=== PATIENT | male | born 1965 | race Caucasian/White ===

== ENCOUNTER 2018-10-20 18:29 | Inpatient (IN) ==
[2018-10-20] MEDS ORDERED: ONDANSETRON INJ 2 MG/ML 2 ML VIAL IV STA (18:45)
[2018-10-20] MEDS ORDERED: MoRPHine SULFATE 4 MG/ML 1 ML CARP\\VIAL IV PRN (18:45)
--- NOTE | 2018-10-20 18:50 | Emergency Department Note ---
Entered by Collin Nina acting as a scribe for History of Present Illness General Chief complaint: Chest Pain Stated complaint: CHEST PAIN, HEADACHE Source: patient History of Present Illness Onset (ago): hour(s) (9.5) Location: chest Pain Consistency: + constant Quality: + other (heaviness) Associated symptoms: + denies other symptoms (abdominal pain), + headaches and + other (neck heaviness); no shortness of breath Treatments prior to arrival: other (nitro) The patient is a 53 year old male who presents to the Emergency Room with complaints of constant upper chest heaviness beginning 9.5 hours ago. The patient states he was in the office this morning when his symptoms started. He reports his heaviness has spread to his neck, and he denies it spreading to his abdomen. The patient notes he was given nitro, and it worsened his headache. He denies feeling a sharp, achy, or cramping pain. 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 He reports he uses tobacco products. He denies shortness of breath, taking medication daily, alcohol use, abdominal pain, a family history of heart attacks at an early age, and a family history of an aneurysm at a young age. Home Medications Home Medications Medication Instructions Recorded Confirmed Type cannabidiol (CBD) extract 1 dose PO DIRECTED 10/20/18 10/20/18 History Allergies Allergy/AdvReac Type Severity Reaction Status Date / Time No Known Allergies Allergy Verified 10/20/18 21:53 [id number] Allergy Unknown Unknown Uncoded 10/20/18 21:53 Past Med/Surg History Medical History No pertinent past medical history Surgical History No pertinent past surgical history Family History Other No pertinent family history Social History Preferred Language: Latvian Communication Ability: Effective Beliefs That Will Affect Care: None Current Living Situation: Spouse Feels Safe at Home: Yes Safety Concerns: Feels Safe At This Time Smoking Status: Never smoker Hx Alcohol Use: Yes Hx Substance Use: No Review of Systems See HPI for pertinent positives & negatives. and A total of 10 systems reviewed and were otherwise negative Physical Exam Vital Signs Vital Signs - 24 hr 10/20/18 18:38 10/20/18 19:00 10/20/18 20:13 Temperature 36.7 C Temperature Source Oral Sepsis Recent Fever Within 48 Hours No Sepsis Action Taken by Nursing No Action Required Pulse Rate Pulse Rate [Right Finger] 66 Pulse Rhythm Regular Pulse Rhythm [Right Finger] Regular Pulse Strength [Right Finger] Normal Respiratory Rate 18 16 Respiratory Effort / Characteristics Non-Labored Respiratory Depth Normal Normal Respiratory Pattern Blood Pressure Blood Pressure [Left Arm] Blood Pressure [Right Arm] 152/115 H Blood Pressure Mean [Left Arm] Blood Pressure Mean [Right Arm] 127 Blood Pressure Position [Left Arm] Blood Pressure Position [Right Arm] Lying Pulse Oximetry 95 95 99 Pulse Oximetry [Right Index Finger] Oxygen Delivery Method Room Air Room Air Room Air Oxygen Delivery Method [Right Index Finger] 10/20/18 22:00 10/20/18 23:30 10/21/18 00:11 Temperature Temperature Source Sepsis Recent Fever Within 48 Hours Sepsis Action Taken by Nursing Pulse Rate 69 Pulse Rate [Right Finger] 86 69 Pulse Rhythm Pulse Rhythm [Right Finger] Regular Regular Pulse Strength [Right Finger] Normal Normal Respiratory Rate 16 15 16 Respiratory Effort / Characteristics Non-Labored Non-Labored Respiratory Depth Normal Normal Respiratory Pattern Regular Regular Blood Pressure 203/138 H Blood Pressure [Left Arm] Blood Pressure [Right Arm] 183/127 H 205/140 H Blood Pressure Mean [Left Arm] Blood Pressure Mean [Right Arm] 145 161 Blood Pressure Position [Left Arm] Blood Pressure Position [Right Arm] Lying Lying Pulse Oximetry 98 95 99 Pulse Oximetry [Right Index Finger] Oxygen Delivery Method Room Air Room Air Room Air Oxygen Delivery Method [Right Index Finger] 10/21/18 00:29 10/21/18 00:30 10/21/18 00:35 Temperature 36.7 C Temperature Source Oral Sepsis Recent Fever Within 48 Hours Sepsis Action Taken by Nursing Pulse Rate Pulse Rate [Right Finger] 83 Pulse Rhythm Pulse Rhythm [Right Finger] Pulse Strength [Right Finger] Respiratory Rate Respiratory Effort / Characteristics Non-Labored Spontaneous Non-Labored Spontaneous Respiratory Depth Normal Normal Respiratory Pattern Regular Regular Blood Pressure Blood Pressure [Left Arm] Blood Pressure [Right Arm] 224/149 H Blood Pressure Mean [Left Arm] Blood Pressure Mean [Right Arm] 174 Blood Pressure Position [Left Arm] Blood Pressure Position [Right Arm] Sitting Pulse Oximetry 97 Pulse Oximetry [Right Index Finger] 96 Oxygen Delivery Method Room Air Room Air Oxygen Delivery Method [Right Index Finger] Room Air 10/21/18 01:04 10/21/18 02:15 10/21/18 03:35 Temperature 36.7 C Temperature Source Oral Sepsis Recent Fever Within 48 Hours Sepsis Action Taken by Nursing Pulse Rate 75 Pulse Rate [Right Finger] 75 65 Pulse Rhythm Pulse Rhythm [Right Finger] Pulse Strength [Right Finger] Respiratory Rate 18 18 Respiratory Effort / Characteristics Non-Labored Spontaneous Respiratory Depth Respiratory Pattern Blood Pressure Blood Pressure [Left Arm] Blood Pressure [Right Arm] 165/88 H 155/84 H Blood Pressure Mean [Left Arm] Blood Pressure Mean [Right Arm] 113 107 Blood Pressure Position [Left Arm] Blood Pressure Position [Right Arm] Lying Pulse Oximetry 96 98 Pulse Oximetry [Right Index Finger] Oxygen Delivery Method Room Air Room Air Oxygen Delivery Method [Right Index Finger] 10/21/18 07:55 10/21/18 12:13 10/21/18 13:31 Temperature 36.6 C 36.7 C Temperature Source Oral Oral Sepsis Recent Fever Within 48 Hours Sepsis Action Taken by Nursing Pulse Rate 77 Pulse Rate [Right Finger] 72 64 Pulse Rhythm Pulse Rhythm [Right Finger] Regular Pulse Strength [Right Finger] Normal Respiratory Rate 18 16 Respiratory Effort / Characteristics Non-Labored Spontaneous Respiratory Depth Normal Respiratory Pattern Blood Pressure Blood Pressure [Left Arm] 193/125 H Blood Pressure [Right Arm] 174/110 H 172/122 H Blood Pressure Mean [Left Arm] 147 Blood Pressure Mean [Right Arm] 131 138 Blood Pressure Position [Left Arm] Sitting Blood Pressure Position [Right Arm] Lying Sitting Pulse Oximetry 97 96 Pulse Oximetry [Right Index Finger] Oxygen Delivery Method Room Air Room Air Oxygen Delivery Method [Right Index Finger] 10/21/18 15:16 Temperature 36.7 C Temperature Source Oral Sepsis Recent Fever Within 48 Hours Sepsis Action Taken by Nursing Pulse Rate Pulse Rate [Right Finger] 64 Pulse Rhythm Pulse Rhythm [Right Finger] Regular Pulse Strength [Right Finger] Normal Respiratory Rate 18 Respiratory Effort / Characteristics Non-Labored Respiratory Depth Normal Respiratory Pattern Blood Pressure Blood Pressure [Left Arm] Blood Pressure [Right Arm] 169/106 H Blood Pressure Mean [Left Arm] Blood Pressure Mean [Right Arm] 127 Blood Pressure Position [Left Arm] Blood Pressure Position [Right Arm] Lying Pulse Oximetry 97 Pulse Oximetry [Right Index Finger] Oxygen Delivery Method Room Air Oxygen Delivery Method [Right Index Finger] GENERAL: Patient is awake and alert. He is somewhat anxious appearing and appears to be uncomfortable. EYES: The conjunctivae are clear. The pupils are round and reactive. EARS, NOSE, MOUTH AND THROAT: The nose is without any evidence of any deformity. Mucous membranes are moist tongue is midline NECK: The neck is nontender and supple. RESPIRATORY: Normal respiratory effort is noted there is no evidence of wheezing rhonchi or rales CARDIOVASCULAR: Regular rate and rhythm noted there no murmurs rubs or gallops normal S1 normal S2 GASTROINTESTINAL: The abdomen is soft. Bowel sounds are present in all quadrants. Abdomen is nontender MUSCULOSKELETAL/EXTREMITIES: There is no evidence of gross deformity full range of motion is noted in the hips and shoulders SKIN: There is no obvious evidence of any rash. There are no petechiae, pallor or cyanosis noted. NEUROLOGIC: Patient is awake alert and oriented x3 strength is symmetric patellar reflexes are 2+ bilaterally Course 1841: Past medical records reviewed. The patient was evaluated in room C01B, and a complete history and physical examination were performed. 2124: I reevaluated the patient and discussed the findings with him. He verbalized agreement to a hospitalist evaluation and the treatment plan. The patient will be evaluated for further management and care. I paged the hospitalist. 1: I reviewed the patient's case with Dr. Vaughn, [facility] Hospitalist. He will evaluate the patient for further management. Administered Medications Amlodipine Besylate (Norvasc) 5 mg PO QAM [facility] Stop: 11/20/18 15:44 Last Admin: 10/21/18 16:14 Dose: 5 mg Documented by: [id number] Aspirin (Ecotrin Ectab) 81 mg PO QAM [facility] Stop: 11/20/18 08:59 Last Admin: 10/21/18 08:21 Dose: 81 mg Documented by: [id number] Enoxaparin Sodium (Lovenox) 40 mg SQ Q24H [facility] Stop: 11/20/18 07:59 Last Admin: 10/21/18 08:22 Dose: 40 mg Documented by: [id number] Hydralazine HCl (Hydralazine Hcl) 10 mg IV Q3H PRN PRN Reason: Systolic BP >180 Stop: 11/20/18 01:14 Last Admin: 10/21/18 01:26 Dose: 10 mg Documented by: [id number] Lisinopril (Zestril) 10 mg PO QAM ANANT Stop: 11/20/18 15:29 Last Admin: 10/21/18 16:14 Dose: 10 mg Documented by: [id number] Discontinued Medications Potassium Chloride/Dextrose/Sod Cl (D5nss + 20meq Kcl) 20 meq in 1,000 mls @ 80 mls/hr IV .[id number] ANANT Stop: 10/21/18 13:04 Last Infusion: 10/21/18 13:17 Dose: 0 mls/hr Documented by: [id number] Admin: 10/21/18 01:35 Dose: 80 mls/hr Documented by: [id number] Ioversol (Optiray 320 125ml) 119 ml IV ONCE PRN PRN Reason: Interaction Checking Stop: 10/24/18 20:30 Last Admin: 10/20/18 20:31 Dose: 119 ml Documented by: [id number] Labetalol HCl (Normodyne) 10 mg IV NOW STA Stop: 10/21/18 13:57 Last Admin: 10/21/18 14:40 Dose: 10 mg Documented by: [id number] Cosigned by: [id number] Lisinopril (Zestril) 5 mg PO NOW ONE Stop: 10/20/18 22:38 Last Admin: 10/20/18 22:51 Dose: 5 mg Documented by: [id number] Ondansetron HCl (Zofran) 4 mg IV NOW STA Stop: 10/20/18 18:46 Last Admin: 10/20/18 18:55 Dose: Not Given Documented by: [id number] Regadenoson (Lexiscan) Confirm Administered Dose 0.4 mg IV .STK-MED ONE Stop: 10/21/18 10:01 Last Admin: 10/21/18 13:16 Dose: Not Given Documented by: [id number] Medical Decision Making Differential Diagnosis Differential: Cardiac Ischemia (STEMI, NSTEMI, Unstable Angina, etc), Aortic Dissection, Arrhythmia, Pulmonary Embolism, Pneumonia, Pneumothorax, MSK, Infectious, Pericarditis/Myocarditis, Esophageal Rupture, Gastrointestinal, amongst other pathologies entertained. Medical Records Attestation: I reviewed the patient's medical records. Home Medications Current Medication List: was personally reviewed by me Laboratory Data Attestation: I reviewed the patient's lab results. Result diagrams: 10/20/18 19:13 10/20/18 19:13 Lab Results 10/20/18 10/20/18 10/20/18 Range/Units 19:13 19:13 19:13 WBC 8.91 (4.8-10.8) K/uL RBC 4.65 L (4.7-6.1) M/uL Hgb 15.2 (14.0-18.0) g/dL Hct 43.8 (42-52) % MCV 94.2 (80-100) fL MCH 32.7 (25-34) pg MCHC 34.7 (32-36) g/dL RDW Std Deviation 41.4 (36.4-46.3) fL RDW Coeff of Tyrel 12.2 (11.5-14.5) % Plt Count 292 (130-400) K/uL MPV 9.2 (7.4-10.4) fL Immature Gran % (Auto) 0.2 % Neut % (Auto) 70.7 % Lymph % (Auto) 16.0 % Thomas % (Auto) 10.5 % Eos % (Auto) 2.0 % Baso % (Auto) 0.6 % Immature Gran # (Auto) 0.02 (0.00-0.02) K/uL Neut # (Auto) 6.29 (1.4-6.5) K/uL Lymph # (Auto) 1.43 (1.2-3.4) K/uL Thomas # (Auto) 0.94 H (0.11-0.59) K/uL Eos # (Auto) 0.18 (0-0.5) K/uL Baso # (Auto) 0.05 (0-0.2) K/uL PT Cancelled INR Cancelled APTT Cancelled PTT Ratio Cancelled Sodium 138 (136-145) mmol/L Potassium 4.0 (3.5-5.1) mmol/L Chloride 104 (98-107) mmol/L Carbon Dioxide 28 (21-32) mmol/L Anion Gap 6.0 (3-11) BUN 9 (7-18) mg/dl Creatinine 0.43 L (0.6-1.4) mg/dl Est Cr Clr Drug Dosing 232.0 ml/min Est GFR ( Amer) > 150.0 Est GFR (Non-Af Amer) 129.8 BUN/Creatinine Ratio 21.2 H (10-20) Glucose 106 H (70-99) mg/dl Calcium 8.8 (8.5-10.1) mg/dl Total Bilirubin 0.5 (0.2-1) mg/dl AST 19 (15-37) U/L ALT 36 (12-78) U/L Alkaline Phosphatase 56 (45-117) U/L Troponin I < 0.015 (0-0.045) ng/ml Total Protein 7.0 (6.4-8.2) gm/dl Albumin 3.6 (3.4-5.0) gm/dl Globulin 3.4 (2.5-4.0) gm/dl Albumin/Globulin Ratio 1.1 (0.9-2) Triglycerides (0-150) mg/dl Cholesterol (0-200) mg/dl LDL Cholesterol, Calc mg/dl VLDL Cholesterol, Calc mg/dl HDL Cholesterol mg/dl Cholesterol/HDL Ratio Lipase 88 (73-393) U/L Hepatitis C Ab Screen (Neg) 10/20/18 10/20/18 10/21/18 Range/Units 19:14 23:49 00:40 WBC (4.8-10.8) K/uL RBC (4.7-6.1) M/uL Hgb (14.0-18.0) g/dL Hct (42-52) % MCV (80-100) fL MCH (25-34) pg MCHC (32-36) g/dL RDW Std Deviation (36.4-46.3) fL RDW Coeff of Tyrel (11.5-14.5) % Plt Count (130-400) K/uL MPV (7.4-10.4) fL Immature Gran % (Auto) % Neut % (Auto) % Lymph % (Auto) % Thomas % (Auto) % Eos % (Auto) % Baso % (Auto) % Immature Gran # (Auto) (0.00-0.02) K/uL Neut # (Auto) (1.4-6.5) K/uL Lymph # (Auto) (1.2-3.4) K/uL Thomas # (Auto) (0.11-0.59) K/uL Eos # (Auto) (0-0.5) K/uL Baso # (Auto) (0-0.2) K/uL PT 10.8 INR 1.1 APTT PTT Ratio Sodium (136-145) mmol/L Potassium (3.5-5.1) mmol/L Chloride (98-107) mmol/L Carbon Dioxide (21-32) mmol/L Anion Gap (3-11) BUN (7-18) mg/dl Creatinine (0.6-1.4) mg/dl Est Cr Clr Drug Dosing ml/min Est GFR ( Amer) Est GFR (Non-Af Amer) BUN/Creatinine Ratio (10-20) Glucose (70-99) mg/dl Calcium (8.5-10.1) mg/dl Total Bilirubin (0.2-1) mg/dl AST (15-37) U/L ALT (12-78) U/L Alkaline Phosphatase (45-117) U/L Troponin I < 0.015 (0-0.045) ng/ml Total Protein (6.4-8.2) gm/dl Albumin (3.4-5.0) gm/dl Globulin (2.5-4.0) gm/dl Albumin/Globulin Ratio (0.9-2) Triglycerides (0-150) mg/dl Cholesterol (0-200) mg/dl LDL Cholesterol, Calc mg/dl VLDL Cholesterol, Calc mg/dl HDL Cholesterol mg/dl Cholesterol/HDL Ratio Lipase (73-393) U/L Hepatitis C Ab Screen Neg (Neg) 10/21/18 10/21/18 Range/Units 07:16 08:58 WBC (4.8-10.8) K/uL RBC (4.7-6.1) M/uL Hgb (14.0-18.0) g/dL Hct (42-52) % MCV (80-100) fL MCH (25-34) pg MCHC (32-36) g/dL RDW Std Deviation (36.4-46.3) fL RDW Coeff of Tyrel (11.5-14.5) % Plt Count (130-400) K/uL MPV (7.4-10.4) fL Immature Gran % (Auto) % Neut % (Auto) % Lymph % (Auto) % Thomas % (Auto) % Eos % (Auto) % Baso % (Auto) % Immature Gran # (Auto) (0.00-0.02) K/uL Neut # (Auto) (1.4-6.5) K/uL Lymph # (Auto) (1.2-3.4) K/uL Thomas # (Auto) (0.11-0.59) K/uL Eos # (Auto) (0-0.5) K/uL Baso # (Auto) (0-0.2) K/uL PT INR APTT PTT Ratio Sodium (136-145) mmol/L Potassium (3.5-5.1) mmol/L Chloride (98-107) mmol/L Carbon Dioxide (21-32) mmol/L Anion Gap (3-11) BUN (7-18) mg/dl Creatinine (0.6-1.4) mg/dl Est Cr Clr Drug Dosing ml/min Est GFR ( Amer) Est GFR (Non-Af Amer) BUN/Creatinine Ratio (10-20) Glucose (70-99) mg/dl Calcium (8.5-10.1) mg/dl Total Bilirubin (0.2-1) mg/dl AST (15-37) U/L ALT (12-78) U/L Alkaline Phosphatase (45-117) U/L Troponin I < 0.015 (0-0.045) ng/ml Total Protein (6.4-8.2) gm/dl Albumin (3.4-5.0) gm/dl Globulin (2.5-4.0) gm/dl Albumin/Globulin Ratio (0.9-2) Triglycerides 115 (0-150) mg/dl Cholesterol 167 (0-200) mg/dl LDL Cholesterol, Calc 84 mg/dl VLDL Cholesterol, Calc 23 mg/dl HDL Cholesterol 60 mg/dl Cholesterol/HDL Ratio 3 Lipase (73-393) U/L Hepatitis C Ab Screen (Neg) Imaging Data Radiologist's Impression: Radiology results as stated below per my review and the radiologist's interpretation: XR chest 1V portable CLINICAL HISTORY: Atypical chest pain COMPARISON STUDY: No previous studies for comparison. FINDINGS: The heart is normal in size. There is elevation/eventration left hemidiaphragm. There is no failure. There is no focal pulmonary consolidation. There are minor left lower lobe compressive atelectatic changes. There are no pleural effusions.[ IMPRESSION: 1. Elevation/eventration of the left hemidiaphragm 2. No evidence of focal pulmonary consolidation Electronically signed by: Duong Lauren M.D. 10/20/2018 7:[address] ANGIOGRAPHY OF THE CHEST WITHOUT A WITH CONTRAST CLINICAL HISTORY: Atypical chest pain. Possible aortic dissection. COMPARISON STUDY: Chest x-ray dated October 20, 2018 TECHNIQUE: Noncontrast images were obtained through the chest. Following the IV administration of 119 mL of Optiray-320, CT angiography of the thorax was performed from the thoracic inlet to the lung bases. MIP imaging was performed. Images are reviewed in the axial, sagittal, and coronal planes. IV contrast was administered without complication. A dose lowering technique was utilized adhering to the principles of ALARA. CT DOSE: 1009.87 mGy.cm FINDINGS: Noncontrast images reveal no evidence of acute thoracic aortic hematoma. Thyroid: Imaged portions of the thyroid gland are normal in appearance. Thoracic aorta: The thoracic aorta is normal in course and caliber, noting s tandard 3-vessel arch anatomy. No aneurysm or dissection is seen. Pulmonary vasculature: The pulmonary trunk is normal in caliber. There are no central filling defects identified to suggest pulmonary embolus. Note that this examination was not protocoled for the evaluation of pulmonary emboli. HEART: The heart is normal in size and configuration, without pericardial effusion. Lungs and pleural spaces: There is moderate respiratory motion artifact. There is no focal pulmonary consolidation. Mediastinum: There is no mediastinal lymphadenopathy. Fay: There is no evidence of pathologic hilar adenopathy Axilla: There is no evidence of pathologic axillary lymphadenopathy Upper abdomen: There is elevation/eventration left hemidiaphragm. There are low lung volumes. There is an 18 mm Central hepatic hypodensity, likely representing a cyst. Skeletal structures: There are no lytic or blastic osseous lesions. IMPRESSION: 1. Low lung volumes with elevation/eventration left hemidiaphragm 2. No evidence of thoracic aortic aneurysm or dissection 3. No evidence of acute pulmonary consolidation Electronically signed by: Duong Lauren M.D. 10/20/2018 8:53 PM ECG Data Attestation: I personally reviewed and interpreted this ECG as follows: Indication: chest pain Rate (beats per minute): 66 Rhythm: normal sinus Findings: + other (LVH by voltage criteria) and + T-wave inversion (lateral); no PAC and no PVC Comparison ECG Date: from (01/10/2001) Additional Comments: changes are new Blood Pressure Blood Pressure Findings: Elevated blood pressure Blood Pressure Disposition: further management by hospitalist MDM Narrative The patient is a 53-year-old male who presented to the emergency department for an evaluation of chest discomfort. The patient had an abnormal EKG which showed some T wave abnormalities. These changes appeared new compared to his previous. He was very anxious and had elevation in his blood pressure. The patient's troponin was negative. I was concerned this could represent a thoracic aortic aneurysm or possibly dissection. For this reason further radiographic studies were obtained. I discussed the patient's laboratory and radiographic studies with him. He was treated with aspirin as well as nitroglycerin. He was also treated with morphine. On subsequent reevaluation he was somewhat improved. Because the patient's abnormal findings I did discuss his case with the on-call [facility] hospitalist group. They have agreed to evaluate the patient in the emergency department for further management and disposition. Impression & Plan Chest pain, Abnormal EKG Discharge Plan Visit Data *Final* Discharge Date/Time: 10/21/18 00:11 Chief Complaint: Chest Pain Stated Complaint: CHEST PAIN, HEADACHE ED Provider: Alex Cosby Discharge Problem: Chest pain, Abnormal EKG Patient Disposition: Admitted As Inpatient Discharge Instructions Interventions: ED Discharge Assessment Last Done: 10/21/18 00:11 Discharge Problem: Chest pain Qualifiers: Chest pain type: unspecified Qualified Code(s): R07.9 - Chest pain, unspecified The scribe's documentation has been prepared under my direction and personally reviewed by me in its entirety. I confirm that the note above accurately reflects all work, treatment, procedures, and medical decision making performed by me.
--- NOTE | 2018-10-20 19:04 | XRay Report ---
XR chest 1V portable CLINICAL HISTORY: Atypical chest pain COMPARISON STUDY: No previous studies for comparison. FINDINGS: The heart is normal in size. There is elevation/eventration left hemidiaphragm. There is no failure. There is no focal pulmonary consolidation. There are minor left lower lobe compressive atel ectatic changes. There are no pleural effusions.[ IMPRESSION: 1. Elevation/eventration of the left hemidiaphragm 2. No evidence of focal pulmonary consolidation Electronically signed by: Duong Lauren M.D. 10/20/2018 7:03 PM
[2018-10-20 19:23] LABS: Basophils # (auto) 0.05 K/uL (0-0.2); Basophils % (auto) 0.6 %; Eosinophils # (auto) 0.18 K/uL (0-0.5); Hematocrit (blood only) 43.8 % (42-52); Hemoglobin 15.2 g/dL (14.0-18.0); Immature Granulocytes # (auto) 0.02 K/uL (0.00-0.02); Immature Granulocytes % (auto) 0.2 %; Lymphocytes # (auto) 1.43 K/uL (1.2-3.4); Mean Corpuscular Hgb Conc 34.7 g/dL (32-36); Mean Corpuscular Volume 94.2 fL (80-100); Mean Platelet Volume 9.2 fL (7.4-10.4); Monocytes # (auto) 0.94 K/uL (0.11-0.59); Monocytes % (auto) 10.5 %; Neutrophils # (auto) 6.29 K/uL (1.4-6.5); Neutrophils % (auto) 70.7 %; Platelet Count 292 K/uL (130-400); RDW Coefficient of Variation 12.2 % (11.5-14.5); RDW Standard Deviation 41.4 fL (36.4-46.3); Red Blood Count 4.65 M/uL (4.7-6.1); White Blood Count 8.91 K/uL (4.8-10.8)
[2018-10-20 19:41] LABS: Alanine Aminotransferase 36 U/L (12-78); Albumin Level 3.6 gm/dl (3.4-5.0); Aspartate Aminotransferase 19 U/L (15-37); BUN Creatinine Ratio 21.2 (10-20); Blood Urea Nitrogen 9 mg/dl (7-18); Calcium 8.8 mg/dl (8.5-10.1); Carbon Dioxide 28 mmol/L (21-32); Chloride 104 mmol/L (98-107); Est GFR (African American) > 150.0; Est GFR (Non-African American) 129.8; Glucose 106 mg/dl (70-99); Sodium 138 mmol/L (136-145)
[2018-10-20 19:46] LABS: Albumin Globulin Ratio 1.1 (0.9-2); Alkaline Phosphatase 56 U/L (45-117); Bilirubin,Total 0.5 mg/dl (0.2-1); Globulin 3.4 gm/dl (2.5-4.0); Troponin I < 0.015 ng/ml (0-0.045)
[2018-10-20] MEDS ORDERED: OPTIRAY 320 125ml IV PRN (20:31)
--- NOTE | 2018-10-20 20:54 | CT Scan Report ---
CT ANGIOGRAPHY OF THE CHEST WITHOUT A WITH CONTRAST CLINICAL HISTORY: Atypical chest pain. Possible aortic dissection. COMPARISON STUDY: Chest x-ray dated October 20, 2018 TECHNIQUE: Noncontrast images were obtained through the chest. Following the IV administration of 119 mL of Optiray-320, CT angiography of the thorax was performed from the thoracic inlet to the lung ba ses. MIP imaging was performed. Images are reviewed in the axial, sagittal, and coronal planes. IV co ntrast was administered without complication. A dose lowering technique was utilized adhering to the principles of ALARA. CT DOSE: 1009.87 mGy.cm FINDINGS: Noncontrast images reveal no evidence of acute thoracic aortic hematoma. Thyroid: Imaged portions of the thyroid gland are normal in appearance. Thoracic aorta: The thoracic aorta is normal in course and caliber, noting standard 3-vessel arch jessi denise. No aneurysm or dissection is seen. Pulmonary vasculature: The pulmonary trunk is normal in caliber. There are no central filling defects identified to suggest pulmonary embolus. Note that this examination was not protocoled for the evalu ation of pulmonary emboli. HEART: The heart is normal in size and configuration, without pericardial effusion. Lungs and pleural spaces: There is moderate respiratory motion artifact. There is no focal pulmonary consolidation. Mediastinum: There is no mediastinal lymphadenopathy. Fay: There is no evidence of pathologic hilar adenopathy Axilla: There is no evidence of pathologic axillary lymphadenopathy Upper abdomen: There is elevation/eventration left hemidiaphragm. There are low lung volumes. There is an 18 mm Central hepatic hypodensity, likely representing a cyst. Skeletal structures: There are no lytic or blastic osseous lesions. IMPRESSION: 1. Low lung volumes with elevation/eventration left hemidiaphragm 2. No evidence of thoracic aortic aneurysm or dissection 3. No evidence of acute pulmonary consolidation Electronically signed by: Duong Lauren M.D. 10/20/2018 8:53 PM
--- NOTE | 2018-10-20 22:21 | History & Physical Report ---
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 The pt denies a history of HTN or CAD, however, he does admit lack of adequate medical follow-up and may have had a high cholesterol when this was checked a few years back. The pt presents with heaviness in his central chest which has been present for 10-12 hours prior to arrival in the ER. He denies SOB, N/V, diaphoresis or lightheadedness. He also describes gradual muscle weakness which he states has been present for several years but is now affecting his daily activities. He could not for example consider a tredmill stress test and experience fatigue with minimal activity. A CTA, EKG and initial labs obtained in the ER are all unremarkable and do not support ACS. 1) CP - no apparent risk factors although the pt does not pursue medical f/u. His BP is slightly high which may be either chronic or due to pain. As he cannot test on a tredmill, we will schedule a nuclear stress for AM. A fasting lipid profile is ordered and his BP should be trended overnight to determine if this should be treated on DC. 2) Muscle weakness - for this admission, we should likely focus on his CP. He will need f/u with neurology to begin with and may eventually need referral to a tertiary center if he does have a progressive neurodegenerative issue. 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 The pt denies a history of HTN or CAD, however, he does admit lack of adequate medical follow-up and may have had a high cholesterol when this was checked a few years back. The pt presents with heaviness in his central chest which has been present for 10-12 hours prior to arrival in the ER. He denies SOB, N/V, diaphoresis or lightheadedness. He also describes gradual muscle weakness which he states has been present for several years but is now affecting his daily activities. He could not for example consider a tredmill stress test and experience fatigue with minimal activity. A CTA, EKG and initial labs obtained in the ER are all unremarkable and do not support ACS. PMH: The pt denies a documented medical history although he may have been diagnosed with high cholesterol. 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 He c/o progressive muscle weakness but has not been worked up Social: Drinks a 6 pack of light beer daily. Chews tobacco. No smoking histroy. 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 Family: Father is alive and well - no history of CAD Mother due to pancreatic CA Allergies Allergy/AdvReac Type Severity Reaction Status Date / Time No Known Allergies Allergy Verified 10/20/18 21:53 [id number] Allergy Unknown Unknown Uncoded 10/20/18 21:53 Home Medications Home Medications Medication Instructions Recorded Confirmed Type cannabidiol (CBD) extract 1 dose PO DIRECTED 10/20/18 10/20/18 History Past Med/Surg History Medical History No pertinent past medical history Surgical History No pertinent past surgical history Family History Other No pertinent family history Social History Feels Safe at Home: Yes Smoking Status: Never smoker Review of Systems Gen: Denies fevers, night sweats, rigors, fatigue, malaise, weight loss/gain ENT: Denies congestion, throat pain, hearing loss Eyes: Denies acute visual changes CV: Chest heaviness as above Pulmonary: Denies SOB, cough, wheezing GI: Denies N/V, diarrhea, constipation Neuro: Denies acute or unilateral weakness, acute gait impairment, headache or acute visual changes Musculoskeletal: Progressive weakness as per HPI Endocrine: Denies polydipsia, polyuria Skin: Denies acute rashes or ulcers Physical Exam 2 Vital Signs (Past 24 Hours): Last Vital Signs Temp 36.7 C 10/20/18 18:38 Pulse 66 10/20/18 20:13 Resp 16 10/20/18 20:13 BP 152/115 H 10/20/18 20:13 Pulse Ox 99 02/26/19 20:13 Physical Exam: General: AAO x 3, no distress ENT: No erythema or exudates, no thrush Eyes: MARCI, EOMI Head and neck: Normocephalic, atraumatic, No JVD, neck is supple. Chest/heart: Nontender, S1,2, RRR, no murmurs, no gallops Lungs: CTAB, no wheezing or crackles Abdomen: Nontender, nondistended, BS+ Neuro: AAO x 3, speech is clear, no unilateral weakness or loss of sensation, coordination intact Musculoskeletal: No joint inflammation, muscle tenderness, FROM - he indeed does not appear to have biceps or adequate muscle mass for an individual in his line of work. Skin: No acute rashes or ulcers Extremities: No clubbing, cyanosis, edema Results & Data Diagnostic Findings CTA: 1. Low lung volumes with elevation/eventration left hemidiaphragm 2. No evidence of thoracic aortic aneurysm or dissection 3. No evidence of acute pulmonary consolidation EKG: NSR - possible T wave inversions in anterior leads which are new _ (1) Chest pain Chest pain type: unspecified Ischemic chest pain type: Qualified Code(s): R07.9 - Chest pain, unspecified
[2018-10-20] MEDS ORDERED: LISINOPRIL 5 MG TAB PO ONE (22:37)
[2018-10-21 00:04] LABS: INR 1.1 (0.9-1.1); Prothrombin Time 10.8 Seconds (9.0-12.0)
[2018-10-21] MEDS ORDERED: ZOLPIDEM TARTRATE 5 MG TAB PO PRN (00:35)
[2018-10-21] MEDS ORDERED: NITROGLYCERIN SL 0.4 MG/TAB TAB SL PRN (00:35)
[2018-10-21] MEDS ORDERED: ONDANSETRON INJ 2 MG/ML 2 ML VIAL IV PRN (00:35)
[2018-10-21] MEDS ORDERED: ALUMINUM/MAGNESIUM SUSP 30 ML UDC PO PRN (00:35)
[2018-10-21] MEDS ORDERED: D5NSS + 20MEQ KCL 20 MEQ/1,000 ML BAG IV SCH (00:35)
[2018-10-21] MEDS ORDERED: POLYETHYLENE (MIRALAX) 17 GM PACK PO PRN (00:35)
[2018-10-21] MEDS ORDERED: MAGNESIUM HYDROXIDE SUSP 30 ML UDC PO PRN (00:35)
[2018-10-21] MEDS ORDERED: MoRPHine SULFATE 2 MG/ML CARP IV PRN (00:35)
[2018-10-21] MEDS ORDERED: ACETAMINOPHEN 325 MG TAB PO PRN (00:35)
[2018-10-21] MEDS: HydrALAZINE HCL 20 MG/ML VIAL IV PRN ×2 (01:26→17:26)
[2018-10-21 08:18] LABS: Chol HDL Ratio 3; Cholesterol 167 mg/dl (0-200); HDL Cholesterol 60 mg/dl; LDL Cholesterol Calculated 84 mg/dl; Triglycerides 115 mg/dl (0-150); VLDL Cholesterol 23 mg/dl
[2018-10-21] MEDS: ASPIRIN 81 MG ECTAB PO SCH (08:21)
[2018-10-21] MEDS: ENOXAPARIN INJ 40 MG/0.4 ML SYR SQ SCH (08:22)
[2018-10-21] MEDS ORDERED: REGADENOSON 0.4 MG/5 ML SYR IV ONE (10:00)
[2018-10-21] MEDS ORDERED: LABETALOL HCL IV 5 MG/ML 20ML IV STA (13:56)
--- NOTE | 2018-10-21 14:03 | Myocardial Perfusion Study ---
Date of Service October 21, 2018 Myocardial Perfusion Study [facility] Myocardial Perfusion Study Report ONE DAY NUCLEAR MEDICINE LEXISCAN TECHNETIUM 99M MYOCARDIAL PERFUSION SCAN Indication: Chest pain. Baseline ECG: Normal sinus rhythm, LVH, nonspecific ST abnormality. Ventricular rate 67. Stress ECG: With Lexiscan T wave inversions in inferior, lateral leads. No arrhythmias. HR julio from 67 to 94 representing 56 % MPHR. SBP 183/111. Lexiscan induced chest heaviness. Technique: For the stress portion of the study 32.6 mCi of Technetium 99m Cardiolite IV was injected at 11: 40 on 10/20/2018. 30 minutes following the injection, imaging of the heart was performed in multiple projections. For the rest portion of the study, 10.9 mCi of Technetium 99m Cardiolite was injected IV at 9: 50. One hour following the injection, imaging of the hear was performed in the same projections. Findings: Rotating raw images were reviewed in detail. Potential sources of attenuation include imaging with arms at sides due to muscle weakness, diaphragmatic attenuation and minimal gut uptake impacting the inferior imaging border of the heart. No significant extracardiac pathologic uptake. Short axis, vertical long axis and horizontal long axis images were reviewed in detail. No visual TID. Moderate, partially reversible, based to mid inferolateral perfusion defect (sum difference score 4). Normal LV size. EDV 102 ml. Calculated EF 56 %. Mild inferolateral basal hypokinesis. SUMMARY: 1. Moderate, partially reversible inferolateral perfusion defect. Possible artifact in the setting of imaging with arms at sides versus single-vessel circumflex disease with a mild to moderate amount of ischemia (SDS 4). 2. Normal LV size and function. LVEF 56 %, mild inferolateral hypokinesis. 3. Non-diagnostic stress ECG due to inability to reach target HR with Lexiscan.
[2018-10-21] MEDS: LISINOPRIL 10 MG TAB PO SCH (16:14)
[2018-10-21] MEDS: AMLODIPINE BESYLATE 5 MG TAB PO SCH (16:14)
--- NOTE | 2018-10-21 17:02 | Cardiology Consultation ---
Date of Consultation October 21, 2018 Assessment & Plan (1) Chest pain: 2. Hypertension 3. Abnormal stress test 4. Neuromuscular disorder 5. Heavy alcohol use Patient with intermittent prolonged periods of chest pain for some time. He attributes the symptoms to anxiety. Most recent episode lasting more than 12 hours with no EKG/cardiac enzyme evidence of coronary ischemia. Suspicion that current chest pain represents ACS is relatively low. Reviewed results of Lexiscan SPECT obtained today. Patient with partially reversible inferolateral perfusion defect. Suspect represents artifact, at worst low risk single-vessel circumflex disease. No wall motion abnormality seen on echo. We discussed options for further evaluation including cardiac catheterization. At this point feel reasonable to manage medically initially and evaluate invasively in the future if symptoms persist despite better controlled blood pressure, anxiety. Patient in agreement with this plan. In regards to blood pressure suspect will need 2 agents for adequate BP control. Would recommend starting RICARDO inhibitor, calcium channel nicole. Agree with as needed IV labetalol. In the setting of risk factors, abnormal stress test would treat patient as if has ASCVD and start on aspirin and statin. Low intensity probably okay with neuromuscular disease and well-controlled lipid panel. We will continue to follow while hospitalized. Follow-up with cardiology on discharge for further blood pressure management. Thank you for allowing us to participate in the care of this patient. Please contact with any questions. History of Present Illness Attending Physician: Anum Koenig MD History of Present Illness Mr. Moreira is a pleasant 53-year-old man with a history of an undiagnosed congenital/progressive neuromuscular disorder, untreated hypertension who was admitted with chest pain. Cardiology consulted today in the setting of persistently elevated blood pressures and abnormal stress test. Patient endorses long-standing episodes of chest pain although have been more severe, persistent over the last week or so leading him to present to [facility] ED yesterday. He reports more than 12 hours of persistent chest pain yesterday. Cardiac enzymes negative x3 since admission. EKG sinus with LVH but no dynamic ST changes. Underwent Lexiscan SPECT today. Imaging completed with arms at side due to upper extremity weakness. LV function preserved but inferolateral perfusion defect noted, partially reversible, artifact versus single vessel disease. Echo showed preserved LV function without regional wall motion abnormality's. Since admission blood pressures have been elevated occasionally greater than 200s. Received 5 lisinopril p.o. No neurologic symptoms. On no blood pressure medicines at home. States was previously on years ago but discontinued in the setting of some dizziness. Patient limited getting around due to his neuromuscular disease. Able to walk around his home if holding onto [place]. Denies exertional increase in chest pressure. Lifelong non-smoker. Denies family history of premature coronary disease. Allergies Allergy/AdvReac Type Severity Reaction Status Date / Time No Known Allergies Allergy Verified 10/20/18 21:53 [id number] Allergy Unknown Unknown Uncoded 10/20/18 21:53 Home Medications Home Medications Medication Instructions Recorded Confirmed Type cannabidiol (CBD) extract 1 dose PO DIRECTED 10/20/18 10/20/18 History Patient History Medical History No pertinent past medical history Surgical History No pertinent past surgical history Family History Other No pertinent family history Social History Preferred Language: Tristanian Communication Ability: Effective Beliefs That Will Affect Care: None Current Living Situation: Spouse Feels Safe at Home: Yes Safety Concerns: Feels Safe At This Time Smoking Status: Never smoker Hx Alcohol Use: Yes Hx Substance Use: No Review of Systems 10 point review of systems was completed and was otherwise negative unless stated in HPI Physical Exam Vital Signs (Past 24 Hours): Last Vital Signs Temp 36.7 C 10/21/18 15:16 Pulse 82 10/21/18 16:00 Resp 18 10/21/18 15:16 BP 169/106 H 10/21/18 15:16 Pulse Ox 97 10/21/18 15:16 Physical Exam: General: Comfortable, no acute distress Eyes: Sclerae anicteric, extraocular movements intact HENT: Oropharynx clear mucous membranes moist Neck: Normal carotid upstrokes, no bruits. No JVD. Lungs: Clear to auscultation bilaterally, no rhonchi or wheezes Cardiac: Regular rate and rhythm, no murmurs, rubs or gallops. Vascular: 2+ radial, DP and PT pulses. No edema. Well-perfused Abdomen: Soft, nontender, nondistended, positive bowel sounds. Extremities: Upper extremity wasting Skin: No rashes or lesions. Neuro: Decreased strength in all extremities bilaterally Psych: Alert orient x3, normal affect and mood (1) Chest pain Chest pain type: unspecified Qualified Code(s): R07.9 - Chest pain, unspecified
--- NOTE | 2018-10-21 19:00 | Hospitalist Progress Note ---
Date of Service October 21, 2018 Assessment & Plan (1) Chest pain: This pt is a 53 y/o M Hx congenital muscular anomalies and HTN (untreated) who p/w heaviness in his central chest which has been present for 10-12 hours prior to arrival in the ER. He denies SOB, N/V, diaphoresis or lightheadedness. He also describes gradual muscle weakness which he states has been present for several years but is now affecting his daily activities. A CTA of the chest for dissection, EKG, and initial labs obtained in the ER are all unremarkable and do not support ACS. Troponin serially negative x 3 With severely elevated BPs as below--> certainly has HTN as a risk factor for CAD Nuc stress with "Moderate, partially reversible inferolateral perfusion defect. Possible artifact in the setting of imaging with arms at sides versus single- vessel circumflex disease with a mild to moderate amount of ischemia (SDS 4). Normal LV size and function. LVEF 56 %, mild inferolateral hypokinesis. Non- diagnostic stress ECG due to inability to reach target HR with Lexiscan. " Cardiology consultation appreciated -recommend treating with medical management, declined cardiac cath for now which is reasonable as Cardiology thinks at worst, may have a low risk lesion in Cx -Needs improved BP management as below -start low intensity statin atorva 10mg due to congenital muscle abnormalities with worsening weakness -start ASA 81mg daily -BP meds as below (2) Hypertensive urgency: With BPs as high as 224/149 here. Has some element of white coat syndrome as per his report. Renal function normal, troponin negative, no focal neuro symptoms that are new other than chronic weakness due to muscular disorder -certainly needs treatment -Continue prn Labvetalol IV -dc IV hydralazine as caused adverse SEs of flushing, nausea, headache -starting lisinopril 10mg daily, amlodipine 5mg daily as per Cardio recommendations -titrate meds upwards as needed -follow on tele (3) HTN (hypertension), benign: -starting lisinopril, amlodipine as above -follow BPs and encouraged him to check BP daily at home after discharge -also needs to abstain from excessive EtOH use -needs close PCP follow up (4) Muscular atrophy: With congenital muscle abnormalities-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 Has never seen a specialist (Neuro or Neuromuscular, Physiatry/PMR in his life). - for this admission, we should likely focus on his CP. He will need f/u with neurology to begin with and may eventually need referral to a tertiary center if he does have a progressive neurodegenerative issue. (5) CAD (coronary artery disease), [place] coronary artery: Presumed based on Nuc Stress as above -continue ASA, statin, BP control (6) Alcohol abuse: Admits to drinking 6 beers daily -should abstain given HTN and for general improved health -follow in case of withdrawal if stays more than 3 days (7) Current tobacco use: chews tobacco-should encourage also to abstain from this (8) DVT prophylaxis: Lovenox SQ Dispo-remain on tele overnight for HTN Urgency Hopeful to dc tomorrow if BPs improved control and no further chest pain Subjective Denies any further chest heaviness since admission. Reports flushing, headache, and nausea after just receiving IV hydralazine. Has had severely elevated BPs since admission and says he has "white coat" HTN. Denies SOB, nausea, no vision changes acutely, no new weakness. Tele with NSR rates 60s-80s Discussed case with Cardiology today Review of Systems All systems reviewed & are unremarkable except as noted in HPI & below Physical Exam Vital Signs (Past 24 Hours): Last Vital Signs Temp 36.7 C 10/21/18 15:16 Pulse 82 10/21/18 16:00 Resp 18 10/21/18 15:16 BP 169/106 H 10/21/18 15:16 Pulse Ox 97 10/21/18 15:16 Constitutional: WD/WN, vitals as above Eyes: PERRL, conjunctivae normal, anicteric sclerae ENMT: external ear and nose normal, oropharynx normal Neck: trachea midline, no thyromegaly Respiratory: normal respiratory effort, lungs clear to auscultation Cardiovascular: RRR, no murmur, no edema Gastrointestinal (Abdomen): normal bowel sounds, soft, nontender, no hepatosplenomegaly Musculoskeletal: Extremities: + extremities abnormal to inspection (With significant muscle atrophy-absence of biceps and triceps bilaterally), no cyanosis and no clubbing Skin: no rashes, warm and dry Neurologic: moves all extremities and awake; no focal motor deficits Psychiatric: A+Ox3, euthymic affect Results & Data Laboratory Results 10/21/18 10/21/18 Range/Units 08:58 07:16 Troponin I < 0.015 (0-0.045) ng/ml Triglycerides 115 (0-150) mg/dl Cholesterol 167 (0-200) mg/dl LDL Cholesterol, Calc 84 mg/dl VLDL Cholesterol, Calc 23 mg/dl HDL Cholesterol 60 mg/dl Cholesterol/HDL Ratio 3 Diagnostic Findings Nuc Stress: SUMMARY: 1. Moderate, partially reversible inferolateral perfusion defect. Possible artifact in the setting of imaging with arms at sides versus single-vessel circumflex disease with a mild to moderate amount of ischemia (SDS 4). 2. Normal LV size and function. LVEF 56 %, mild inferolateral hypokinesis. 3. Non-diagnostic stress ECG due to inability to reach target HR with Lexiscan. ECHO: grade 1 diastolic dysfunction, LVEF 60%, no valvular abnormalities (1) Chest pain Chest pain type: unspecified Qualified Code(s): R07.9 - Chest pain, unspecified
[2018-10-21] MEDS ORDERED: LABETALOL HCL IV 5 MG/ML 20ML IV PRN (19:03)
[2018-10-22 07:41] LABS: BUN Creatinine Ratio 19.6 (10-20); Calcium 8.6 mg/dl (8.5-10.1); Creatinine Clr Calc Pharmacy 199.5 ml/min; Est GFR (African American) 141.4; Magnesium 2.3 mg/dl (1.8-2.4); Potassium 4.3 mmol/L (3.5-5.1)
[2018-10-22] MEDS: ENOXAPARIN INJ 40 MG/0.4 ML SYR SQ SCH (08:34)
[2018-10-22] MEDS: AMLODIPINE BESYLATE 5 MG TAB PO SCH ×2 (08:40→20:56)
[2018-10-22] MEDS: LISINOPRIL 10 MG TAB PO SCH (08:40)
[2018-10-22] MEDS: ASPIRIN 81 MG ECTAB PO SCH (08:40)
[2018-10-22] MEDS: ATORVASTATIN 10 MG TAB PO SCH (08:40)
[2018-10-22 09:41] LABS: Folate (Folic Acid) 20.74 ng/ml (>5.38)
[2018-10-22] MEDS ORDERED: LISINOPRIL 10 MG TAB PO ONE (12:30)
[2018-10-22] MEDS ORDERED: LORazepam 0.5 MG TAB PO PRN (17:45)
--- NOTE | 2018-10-22 18:42 | Cardiology Progress Note ---
Date of Service October 22, 2018 Assessment & Plan (1) Chest pain: 2. Hypertension 3. Abnormal stress test 4. Neuromuscular disorder 5. Heavy alcohol use Chest pain largely resolved. Suspicion the chest pain represented ACS remains low. Stress test thought to be artifact versus low risk disease and medical management planned. Blood pressure remains labile. Continue to titrate up RICARDO inhibitor. Continue amlodipine, can increase to 10 May need additional thiazide diuretic continue statin, aspirin Follow-up with cardiology in 1 month post discharge. Subjective No recurrent chest pain. Still with unsteadiness when getting up. No other new concerns today. Blood pressure remains labile with occasional systolic pressures in the 180s. Next Telemetry reviewno events Review of Systems 10 point review of systems was completed and was otherwise negative unless stated in HPI Physical Exam Vital Signs (Past 24 Hours): Last Vital Signs Temp 36.7 C 10/22/18 15:40 Pulse 90 10/22/18 16:55 Resp 18 10/22/18 15:40 BP 184/105 H 10/22/18 15:40 Pulse Ox 97 10/22/18 15:40 Physical Exam: General: Comfortable, no acute distress Eyes: Sclerae anicteric, extraocular movements intact HENT: Oropharynx clear mucous membranes moist Lungs: Clear to auscultation bilaterally, no rhonchi or wheezes Cardiac: Regular rate and rhythm, no murmurs, rubs or gallops. Vascular: 2+ radial, DP and PT pulses. No varicosities. Abdomen: Soft, nontender, nondistended, positive bowel sounds. Extremities: Proximal muscle wasting Skin: No rashes or lesions. Neuro: Nonfocal Psych: Alert orient x3, normal affect and mood (1) Chest pain Chest pain type: unspecified Qualified Code(s): R07.9 - Chest pain, unspecified
--- NOTE | 2018-10-22 19:52 | Hospitalist Progress Note ---
Date of Service October 22, 2018 Assessment & Plan (1) Positive cardiac stress test: Stress test was positive. Trops and tele negative while here. Seen by cardiology - medical management at this time including asa, statin, BP control. Quit smoking. Observe for any new symptoms. CTA chest noted to be neg for PE. No recurrent symptoms overnight. (2) Current tobacco use: halfway house counselor to quit (3) Alcohol abuse: no signs/symptoms of withdrawal. patient w/ anxiety but this is likely chronic. ativan prn. consider SSRI. cont thiamine, folic acid, and MVI. (4) HTN (hypertension), benign: uncontrolled. anxiety playing role? I gave additional dose of lisinopril w/o much change in BPs. increase amlodipine to 5mg BID tonight. follow response. treat anxiety. (5) Muscular atrophy: variant muscular dystrophy? other? checked b12, folate, and CPK -- all normal. needs neurology referral after d/c. would significantly benefit from inpatient rehab. appreciate PT, OT consults. (6) Hypertensive urgency: slowly improving. increase amlodipine to 5mg BID. cont RICARDO. echo report reviewed. (7) Chest pain: resolved. see "stress test" section above. (8) DVT prophylaxis: lovenox daily hopefully d/c tomorrow. patient was willing to consider [facility] inpatient rehab given his significant proximal muscle weakness and heightened fall risk. Subjective patient feels well no chest symptoms or dyspnea tele stable muscular atrophy and proximal muscle weakness has been progressive "for years" during our conversation he was willing to talk to [facility] rep about possible inpt rehab Constitutional: no fever Respiratory: no cough Gastrointestinal: no abdominal pain Physical Exam Vital Signs (Past 24 Hours): Last Vital Signs Temp 36.7 C 10/22/18 19:39 Pulse 84 10/22/18 19:39 Resp 18 10/22/18 19:39 BP 160/96 H 10/22/18 19:39 Pulse Ox 98 10/22/18 19:39 Constitutional: well developed and well nourished; no acute distress ENMT: external ear and nose normal, oropharynx normal Respiratory: normal respiratory effort, lungs clear to auscultation Cardiovascular: RRR, no murmur, no edema Heart Sounds: normal S1 and normal S2 Vessels: dorsalis pedis pulses present; no JVD Extremities: normal capillary refill Gastrointestinal (Abdomen): normal bowel sounds, soft, nontender, no hepatosplenomegaly Musculoskeletal: Extremities: + muscle atrophy (prox muscles of legs (thighs/etc) and shoulders; absent biceps b/l) Neurologic: + focal motor deficit (arm flexion very weak; hip flexion weak) Psychiatric: A+Ox3, euthymic affect Mood: + anxious mood Results & Data Laboratory Results Laboratory Results - last 24 hr 10/22/18 10/22/18 10/22/18 06:33 09:00 09:00 Sodium 140 Potassium 4.3 Chloride 107 Carbon Dioxide 28 Anion Gap 5.0 BUN 10 Creatinine 0.50 L Est Cr Clr Drug Dosing 199.5 Est GFR ( Amer) 141.4 Est GFR (Non-Af Amer) 122.0 BUN/Creatinine Ratio 19.6 Glucose 89 Calcium 8.6 Magnesium 2.3 Total Creatine Kinase 212 Vitamin B12 418 Folate 20.74 (1) Muscular atrophy Muscle atrophy area: multiple sites Qualified Code(s): M62.59 - Muscle wasting and atrophy, not elsewhere classified, multiple sites (2) Chest pain Chest pain type: unspecified Qualified Code(s): R07.9 - Chest pain, unspecified
[2018-10-22] MEDS: THIAMINE HCL 100 MG TAB PO SCH (20:56)
[2018-10-23] MEDS: ATORVASTATIN 10 MG TAB PO SCH (07:40)
[2018-10-23] MEDS: ENOXAPARIN INJ 40 MG/0.4 ML SYR SQ SCH (07:40)
[2018-10-23] MEDS: FOLIC ACID 1 MG TAB PO SCH (07:41)
[2018-10-23] MEDS: ASPIRIN 81 MG ECTAB PO SCH (07:41)
[2018-10-23] MEDS: CEROVITE ADV FORMULA TAB PO SCH (07:42)
[2018-10-23] MEDS: AMLODIPINE BESYLATE 5 MG TAB PO SCH ×2 (07:42→20:44)
[2018-10-23] MEDS: LISINOPRIL 10 MG TAB PO SCH ×2 (07:42→21:43)
[2018-10-23] MEDS: THIAMINE HCL 100 MG TAB PO SCH (07:42)
[2018-10-23] MEDS ORDERED: LIDOCAINE HCL 1% 20 ML VIAL ONE (14:17)
--- NOTE | 2018-10-23 14:28 | Cardiology Progress Note ---
Date of Service October 23, 2018 Assessment & Plan (1) Chest pain: 2. Hypertension 3. Abnormal stress test 4. Neuromuscular disorder 5. Heavy alcohol use No further chest heaviness. Was noted to have incidental, asymptomatic EKG changes overnight. Suspect may be related to LVH but potentially but changes almose "wellens like" and in the setting of risk factors, mildly abnormal stress test including similar EKG changes with pharmacologic stress recommend proceeding with cardiac catheterization to rule out high risk disease. Discussed risks, benefits, alternatives of procedure with patient he is willing to proceed. Further conditions pending findings of catheterization. Subjective Overnight noted to have change in T waves on telemetry while sleeping. Repeat EKG showed new deep T wave inversions anteriorly. Previously had similar changes during stress test. Patient asymptomatic during event. This morning patient feeling well. Other new concerns. Review of Systems 10 point review of systems was completed and was otherwise negative unless stated in HPI Physical Exam Vital Signs (Past 24 Hours): Last Vital Signs Temp 36.8 C 10/23/18 11:13 Pulse 80 10/23/18 11:13 Resp 16 10/23/18 11:13 BP 160/101 H 10/23/18 11:13 Pulse Ox 99 10/23/18 11:13 Physical Exam: General: Comfortable, no acute distress Eyes: Sclerae anicteric, extraocular movements intact HENT: Oropharynx clear mucous membranes moist Lungs: Clear to auscultation bilaterally, no rhonchi or wheezes Cardiac: Regular rate and rhythm, no murmurs, rubs or gallops. Vascular: 2+ radial, DP and PT pulses. No varicosities. Abdomen: Soft, nontender, nondistended, positive bowel sounds. Extremities: Well perfused, no peripheral edema Skin: No rashes or lesions. Neuro: Nonfocal Psych: Alert orient x3, normal affect and mood (1) Chest pain Chest pain type: unspecified Qualified Code(s): R07.9 - Chest pain, unspecified
[2018-10-23] MEDS ORDERED: MIDAZOLAM HCL 1 MG/ML 2ML VIAL ONE (14:51)
[2018-10-23] MEDS ORDERED: NiCARDipine HCL INJ 2.5 MG/ML 10 ML AMP ONE (14:51)
[2018-10-23] MEDS ORDERED: fentaNYL citrate 100 MCG/2 ML VIAL ONE (14:51)
[2018-10-23] MEDS ORDERED: HEPARIN (PORCINE) 1000 UNIT/ML 10 ML (CATH LAB USE ONLY) ONE (14:51)
--- NOTE | 2018-10-23 15:17 | Post Anesthesia Assessment ---
Date of Service October 23, 2018 Post Sedation Assessment Vital Signs Temp Pulse Pulse Resp BP BP Pulse Ox 10/23/18 11:13 36.8 C 80 16 160/101 H 99 10/23/18 06:47 36.4 C L 67 18 152/90 H 96 10/23/18 03:41 36.3 C L 72 18 135/88 96 10/23/18 03:31 81 10/22/18 23:12 36.6 C 82 16 133/78 93 10/22/18 19:39 36.7 C 84 18 160/96 H 98 10/22/18 16:55 90 10/22/18 15:40 36.7 C 81 18 184/105 H 97 Recovery Score Activity: Moves 4 extremities Respiration: Deep Breath/Cough Circulation: +/-20% PreAnes Value Consciousness: Fully Awake Oxygen Saturation: O2 needed for >90% Discharge Sedation Level of Care: Fast Track Phase II Post Sedation Plan On clinical assessment, the patient appears to have tolerated the sedation without complications. Patient is recovering as anticipated. Patient will continue to be monitored by nursing and may be discharged when sedation discharge criteria are met per below protocol. Upon Completions of procedure and additional 15 minutes continue every 5 minute vital signs and the P.A.R. score; then discharge to a Phase I or Fast Track to Phase II per the following guidelines: * Discharge Patient to appropriate Phase II area if PAR is 8 or greater or return to pre- procedure baseline. The post - procedure orders will be as directed. * If PAR score is less than 8 or not return to pre-procedure baseline then patient will follow Phase I monitoring till PAR is reached for Phase II. The Phase I may be done in procedure room or may call to secure a Phase I area. * If naloxone or flumazenil are used for reversal, hold in Phase I for continued monitoring from when last reversal dose was given for a minimum of 60 minutes or longer pending the nurse and/or physician discretion of patient condition before discharge to Phase II. Please call the Sedation Physician to re-evaluate and complete post-note for discharge to Phase II area. Do NOT discharge from procedure sedation or Phase 1 until post- sedation evalu ation note is complete by procedure /sedation MD Sedation Discharge Instructions to be given to the patient at discharge to home.
--- NOTE | 2018-10-23 15:17 | Pre Anesthesia Assessment ---
Date of Service October 23, 2018 Pre Sedation Assessment Vital Signs Temp Pulse Pulse Resp BP BP Pulse Ox 10/23/18 11:13 36.8 C 80 16 160/101 H 99 10/23/18 06:47 36.4 C L 67 18 152/90 H 96 10/23/18 03:41 36.3 C L 72 18 135/88 96 10/23/18 03:31 81 10/22/18 23:12 36.6 C 82 16 133/78 93 10/22/18 19:39 36.7 C 84 18 160/96 H 98 10/22/18 16:55 90 10/22/18 15:40 36.7 C 81 18 184/105 H 97 Cardiovascular RRR, no murmur, no edema Respiratory normal respiratory effort, lungs clear to auscultation Pre-Sedation Airway Assessment Smoking Status: Never smoker Hx Sleep Apnea: No Hx Difficult Intubation: No Short, Thick Neck: No Oral Cavity: + WNL Mallampati Class: III Procedure Planning Contraindications for Sedation: none Current Medications Reviewed: Yes Notes The planned sedation has been discussed with the patient. Informed Consent was obtained. I have identified the patient, determined the appropriateness of sedation and have assessed the patient immediately prior to the procedure. All medicine(s) and interventions are by my order.
--- NOTE | 2018-10-23 15:24 | Cardiac Catheterization ---
Cardiac Cath Procedure Full Procedure Date October 23, 2018 Pre-Procedure Diagnosis Pre-Procedure Diagnosis: Positive Stress Test AUC Score AUC Score: 7 Post-Procedure Diagnosis Post-Procedure Diagnosis: Normal Coronary Arteries and Normal Intracardiac Pressures Procedure(s) Performed Procedure(s) Performed: Coronary Angiography and Left Heart Cath [employer] Service Mechanic Tereso Rivera MD Director Of Land(s) Pallavi Estimated Blood Loss Estimated Blood Loss: 5 Medication(s) Medication(s): Fentanyl, Heparin, Lidocaine 1%, Nicardipine, Nitroglycerin and Versed Summary of Findings Indication: Abnormal stress test, chest pressure Access: 6 Fr slender right radial artery Catheters: [place], JL 3.5, JR4 Findings: LM -large caliber vessel, short, angiographically normal LAD -large caliber vessel, angiographically normal, sluggish flow distally. Gives off 2 small to moderate caliber diagonals without significant disease Circumflex -moderate caliber vessel, angiographically normal. Large OM 3 without significant disease RCA -dominant, large caliber vessel, tortuous, angiographically normal LVEDP -1 Arterial Closure: TR band Summary: 1. Angiographically normal coronary arteries 2. Normal intracardiac filling pressure Recommendations: Stress test represents false positive. Suspect EKG changes secondary to LVH Continue to titrate antihypertensives. Can discontinue aspirin, statin Hemodynamics Rest Ao:: 124/75/94 Final Ao: 129/80/101 LV: 116/1 Recommendations Recommendations: Medical Therapy and/or Counseling Specimens Specimens: None Radiation Exposure (mGy) 1582 Contrast (mls) 45 Fluids (cc crystalloids) Fluids (cc crystalloids): 50 Drains Drains: None Anesthesia Moderate Procedural Complication(s) None Disposition PCU ACC Data: Curtain Mender Cardiac Status Clinical evaluation leading to the procedure CAD Presenation: Positive Stress Test Anginal Classification: CCS III Heart Failure: No Cardiogenic Shock within 24 Hours: No Cardiac Arrest within 24 Hours: No Imaging Studies Past 6 Months: Yes Stress Studies Past 6 Months: Yes Stress Echocardiogram: Yes - Positive Diagnostic Physicians Name: Tereso Rivera MD Status: Elective Closure Device Percutaneous Entry Location: Radial Closure Device: Radial Band Recommendations: Medical Therapy and/or Counseling PCI Indication: + Stress Test Intraprocedure Events Significant Disection: No Perforation: No
[2018-10-23] MEDS ORDERED: SODIUM CHLORIDE 0.9% 1000ML 1,000 ML IV SCH (15:30)
--- NOTE | 2018-10-23 20:57 | Hospitalist Progress Note ---
Date of Service October 23, 2018 Assessment & Plan (1) Positive cardiac stress test: Stress test was positive. In light of normal cath today this was a false positive test. CTA chest noted to be neg for PE. No recurrent chest pain during the admission. Chest pain was either anxiety or related to markedly elevated BPs at presentation. (2) Current tobacco use: recreational counselor to quit (3) Alcohol abuse: no signs/symptoms of withdrawal. patient w/ anxiety but this is likely chronic. ativan prn. consider SSRI. cont thiamine, folic acid, and MVI. (4) HTN (hypertension), benign: uncontrolled despite increasing norvasc to 5mg BID. will increase lisinopril to 10mg BID. follow. (5) Muscular atrophy: variant muscular dystrophy? other? checked b12, folate, and CPK -- all normal. needs neurology referral after d/c. would significantly benefit from inpatient rehab. appreciate PT, OT consults. (6) Hypertensive urgency: resolved. see above in "HTN..." (7) Chest pain: resolved. see "stress test" section above. (8) DVT prophylaxis: lovenox daily patient willing to go to rehab he is excellent candidate for such await insurance auth recheck BMP am Subjective pt feeling well no cp, dyspnea, etc in middle of night there were ST changes noted on heart monitor 12-lead EKG obtained with deep inverted T waves I discussed this with DR. Rivera this am decision made, in light of recent +stress test, to proceed with heart cath cath done - fortunately normal coronaries patient IS willing to go to [facility] for rehab Constitutional: no fever Respiratory: no cough and no dyspnea Cardiovascular: no chest pain Gastrointestinal: no abdominal pain Physical Exam Vital Signs (Past 24 Hours): Last Vital Signs Temp 36.7 C 10/23/18 20:41 Pulse 81 10/23/18 20:41 Resp 16 10/23/18 11:13 BP 134/87 10/23/18 20:41 Pulse Ox 94 10/23/18 18:00 Constitutional: well developed and well nourished; no acute distress ENMT: external ear and nose normal, oropharynx normal Respiratory: normal respiratory effort, lungs clear to auscultation Cardiovascular: RRR, no murmur, no edema Heart Sounds: normal S1 and normal S2 Vessels: dorsalis pedis pulses present; no JVD Extremities: normal capillary refill Gastrointestinal (Abdomen): normal bowel sounds, soft, nontender, no hepatosplenomegaly Musculoskeletal: Extremities: + muscle atrophy (prox muscles of legs (thighs/etc) and shoulders; absent biceps b/l) Neurologic: + focal motor deficit (arm flexion very weak; hip flexion weak) Psychiatric: A+Ox3, euthymic affect Results & Data Laboratory Results Laboratory Results - last 24 hr 10/23/18 00:48 Troponin I < 0.015 (1) Muscular atrophy Muscle atrophy area: multiple sites Qualified Code(s): M62.59 - Muscle wasting and atrophy, not elsewhere classified, multiple sites (2) Chest pain Chest pain type: unspecified Qualified Code(s): R07.9 - Chest pain, unspecified
[2018-10-24 07:10] LABS: Hematocrit (blood only) 47.7 % (42-52); Hemoglobin 15.8 g/dL (14.0-18.0); Mean Corpuscular Hgb Conc 33.1 g/dL (32-36); Mean Platelet Volume 9.7 fL (7.4-10.4); Platelet Count 290 K/uL (130-400); RDW Coefficient of Variation 12.4 % (11.5-14.5); RDW Standard Deviation 43.6 fL (36.4-46.3); Red Blood Count 4.92 M/uL (4.7-6.1); White Blood Count 8.27 K/uL (4.8-10.8)
[2018-10-24 07:45] LABS: BUN Creatinine Ratio 39.8 (10-20); Calcium 8.4 mg/dl (8.5-10.1); Creatinine Clr Calc Pharmacy 207.8 ml/min; Est GFR (African American) 143.8; Est GFR (Non-African American) 124.1; Potassium 4.6 mmol/L (3.5-5.1)
[2018-10-24] MEDS: THIAMINE HCL 100 MG TAB PO SCH (08:04)
[2018-10-24] MEDS: AMLODIPINE BESYLATE 5 MG TAB PO SCH (08:04)
[2018-10-24] MEDS: ENOXAPARIN INJ 40 MG/0.4 ML SYR SQ SCH (08:04)
[2018-10-24] MEDS: LISINOPRIL 10 MG TAB PO SCH (08:04)
[2018-10-24] MEDS: FOLIC ACID 1 MG TAB PO SCH (08:04)
[2018-10-24] MEDS: CEROVITE ADV FORMULA TAB PO SCH (08:04)
--- NOTE | 2018-10-29 07:33 | Discharge Summary ---
Date of Service date of admission - 10/20/18 date of discharge - 10/24/18 Admission HPI Per Admitting Provider 53 y/o M Hx congenital muscular anomalies only. The pt denies a history of HTN or CAD, however, he does admit to lack of adequate medical follow-up and may have had a high cholesterol when this was checked a few years back. The pt presents with heaviness in his central chest which has been present for 10-12 hours prior to arrival in the ER. He denies SOB, N/V, diaphoresis or lightheadedness. He also describes gradual muscle weakness which he states has been present for several years but is now affecting his daily activities. He could not for example consider a tredmill stress test and experience fatigue with minimal activity. A CTA, EKG and initial labs obtained in the ER are all unremarkable and do not support ACS. PMH: The pt denies a documented medical history although he may have been diagnosed with high cholesterol. 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 He c/o progressive muscle weakness but has not been worked up Social: Drinks a 6 pack of light beer daily. Chews tobacco. No smoking histroy. 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 Principal Diagnosis chest pain, false positive stress test as heart catheterization showed normal coronary arteries Discharge Exam Constitutional well nourished; no acute distress ENMT external ear and nose normal, oropharynx normal Respiratory normal respiratory effort, lungs clear to auscultation Cardiovascular RRR, no murmur, no edema Heart Sounds: normal S1 and normal S2 Vessels: dorsalis pedis pulses present; no JVD Extremities: normal capillary refill Gastrointestinal (Abdomen) normal bowel sounds, soft, nontender, no hepatosplenomegaly Musculoskeletal Extremities: + muscle atrophy (prox muscles of legs (thighs/etc) and shoulders; atrophic biceps b/l) Neurologic + focal motor deficit (arm flexion very weak; hip flexion weak) Psychiatric A+Ox3, euthymic affect Discharge Data Allergies Allergy/AdvReac Type Severity Reaction Status Date / Time No Known Allergies Allergy Verified 10/20/18 21:53 Consultations cardiology - Tereso Rivera MD PT, OT Procedures Performed 1. Left heart catheterization - Tereso Rivera MD NORMAL CORONARY ARTERIES. 2. Echocardiogram - * normal LV function * normal valve function * no wall motion abnormalities 3. CTA chest - IMPRESSION: 1. Low lung volumes with elevation/eventration left hemidiaphragm 2. No evidence of thoracic aortic aneurysm or dissection 3. No evidence of acute pulmonary consolidation 4. Lexiscan nuclear stress test - SUMMARY: 1. Moderate, partially reversible inferolateral perfusion defect. Possible artifact in the setting of imaging with arms at sides versus single-vessel circumflex disease with a mild to moderate amount of ischemia (SDS 4). 2. Normal LV size and function. LVEF 56 %, mild inferolateral hypokinesis. 3. Non-diagnostic stress ECG due to inability to reach target HR with Lexiscan. Hospital Course (1) Chest pain: Underwent extensive work-up including CTA chest, echo, stress test, and heart catheterization. Troponin x 4 were negative. Telemetry was normal. CTA chest did not show PE or pneumonia. Echo was normal. Stress test was positive and, in light of his normal heart catheterization, this represented a false positive stress test. Ultimately the pain was either GI in origin, musculoskeletal in origin, due to his severely elevated BPs, and/or due to anxiety. He had no further chest pain following admission. (2) Positive cardiac stress test: Stress test was positive. In light of normal cath this was a false positive test. (3) Current tobacco use: counseled to quit (4) Alcohol abuse: no signs/symptoms of withdrawal during the stay. patient had anxiety but this is likely chronic and was likely not related to withdrawal. ativan prn. consider SSRI. continue thiamine, folic acid, and MVI. (5) HTN (hypertension), benign: Patient was initiated on norvasc and lisinopril. Both were titrated and by the time of discharge his BP control was much better. He will discharge on norvasc 5mg BID and lisinopril 10mg BID. (6) Muscular atrophy: variant of muscular dystrophy? other entity? checked b12, folate, and CPK -- all normal. seen by PT, OT while hospitalized -- both advised inpatient rehab. He indeed is transferring to [facility] for inpatient rehab post- discharge. Recommend outpatient referral to [facility] to have additional work-up for his impressive muscular atrophy and proximal muscle weakness. (7) Hypertensive urgency: resolved. see above in "HTN..." Total Time Total Time Spent Total Time Spent (In Minutes): 45 Total Time Includes: Examination of the Patient, Discharge Planning and Medication Reconciliation Discharge Plan Discharge Items Patient Disposition: Transfer Inpatient Rehab Fac Reason For Visit: CHEST PAIN Discharge Diagnosis: chest pain, no evidence of heart attack; positive stress test but heart catheterization showed normal coronary arteries; thus, your stress test was "falsely positive" Discharge Goals: Diagnostic testing and Therapeutic intervention Activity: Per 'Additional Instructions' section Non-emergency contact: Primary Care Provider Call non-emergency contact if: you have any medication questions Follow-up/Referrals: Anderson Rose III, MD [Physician] - (see Dr. Rose - [facility] neurology - or one of his partners - first available appointment) Diet: Heart Healthy Addtl Provider Instructions: From Valentin Ernandez - Hospitalist - 1. ACTIVITY RECOMMENDATIONS following your heart catheterization: It is common to feel weak and fatigue for a few days. * Do not drive or operate any motorized equipment for the next three days. * Limit stair usage (2 or 3 trips a day only) for the next three days. * Do not lift anything heavier than 10 pounds for the next three days with your right hand/arm. * Do not engage in vigorous exercise or any sports for the next five days. * You may shower the day after your procedure, but do not immerse the right wrist for three days. Cleanse the site gently with soap and water. SPECIAL CARE INSTRUCTIONS: * You may replace the pressure dressing or band-aid the morning after the procedure. * After your procedure, it is normal to have a small bruise or small lump at the site. Examine your site daily for any change in the bruise or lump, redness, swelling, drainage or numbness. Notify your doctor if any change. BLEEDING: * If there is a small amount of bleeding at the site, lie down and apply firm pressure with a clean cloth for ten minutes. When the bleeding stops, lie quietly keeping the procedure limb straight for six hours. Notify your doctor as soon as possible. * If the bleeding does not stop after ten minutes or if there is a large amount of bleeding or spurting, call 911 immediately. Continue to lie down and hold firm pressure until help arrives. SKIN IRRITATION: * You may experience some redness and/or swelling in the area where radiation was administered. If any skin irritation occurs, please contact your family physician. 2. Follow-up - * see [facility] neurolog[facility] for work-up of your muscular disorder - first available appointment * follow-up with your family doctor for blood pressure control after discharge from [facility] 3. Again your chest pain was likely either due to your significantly elevated blood pressure at time of admission and/or anxiety. Your blood pressures improved with blood pressure medications. Please try to moderate your alcohol intake and also stop any tobacco use. 4. Your heart catheterization showed COMPLETELY NORMAL CORONARIES. This was great news. Your stress test was thus "falsely positive." Although your EKG looks abnormal it is NOT a sign of coronary artery disease. Your EKG abnormalities are likely due to long-standing high blood pressure. 5. Return to [facility] if - * you have fever over 100.5 degrees * you have severely elevated blood pressures * you are feeling short of breath * any other concerns Prescriptions: New amlodipine [Norvasc] 5 mg Tablet 5 mg PO BID Qty: 60 RF: 2 lisinopril [Zestril] 10 mg Tablet 10 mg PO BID Qty: 60 RF: 2 folic acid 1 mg Tablet 1 mg PO QAM Qty: 30 RF: 0 Certavite-Antioxidant 18-400 mg-mcg Tablet 1 tab PO QAM Qty: 90 RF: 3 thiamine HCl (vitamin B1) [Vitamin B-1] 100 mg Tablet 200 mg PO BID 30 Days Qty: 120 RF: 0 Discontinued cannabidiol (CBD) extract 100 mg/mL Solution 1 dose PO DIRECTED RF: 0 Stand-Alone Forms: My [facility]/Other Patient Handouts: Folic Acid Oral tablet, Vitamin B1 Thiamine Oral tablet, Lisinopril Oral tablet, Cath Cardiac Dc Discharge Orders: Discharge Order (Routine); Ordered 10/24/18 Ordered By: Valentin Ernandez Skilled Items Patient informed of condition?: Yes DNR: No Discharge Level of Care: Acute rehab Communicable Disease: No Discharge Prognosis: Stable Admission Data Admit Date/Time: 10/21/18 15:24 Attending Provider: Valentin Ernandez Admit Provider: Milton Vaughn Primary Care Provider: PCP,NO Other Providers: Cameron Rivera Service: Telemetry Other Interventions: Discharge Summary Assessment (RN) Last Done: 10/24/18 11:43 Pending Studies at Discharge: No DC Date/Time DO NOT enter until pt leaves facility: 10/24/18 13:34
== END 2018-10-24 13:34 | DRG 287 ==
LOC: ED 18:29 → 2S 18:29 → SUATTDRO 22:05 → 2S 10-21 00:11 → SUATTDRO 10-21 15:24 → 2S 10-22 20:54
DX: F10.10 Alcohol abuse, uncomplicated; I10 Essential (primary) hypertension; M62.50 Muscle wasting and atrophy, not elsewhere classified, unspecified site; I16.0 Hypertensive urgency; R07.9 Chest pain, unspecified; I25.10 Atherosclerotic heart disease of native coronary artery without angina pectoris; F17.220 Nicotine dependence, chewing tobacco, uncomplicated